=== PATIENT | female | born 1960 | race Caucasian/White ===

== ENCOUNTER 2024-07-27 11:19 | Emergency (ER) | payer OTHER ==
--- NOTE | 2024-07-27 11:30 | ECG ---
[facility] Test Date: 2024-07-27 Test Time: 11:21:20 Pat Name: EVA POPE Department: er Room: Gender: F Inspector And Clerk: yamil : 1960 Requested By: VERENA LORA Order Number: [id number] Reading MD: Kameron Tamayo Measurements Intervals [place] Rate: 88 P: 74 [place]: 145 QRS: 81 QRSD: 128 T: 69 QT: 367 QTc: 444 Interpretive Statements Sinus rhythm Probable left atrial enlargement Right bundle branch block Electronically Signed On 07-27-2024 14:53:24 PST by Kameron Tamayo Please click the below link to view image of tracing.
--- NOTE | 2024-07-27 11:42 | ED.PDOC ---
HPI Comments 64 y.o female with PMHx of asthma and HTN, coming from [facility], presents to the ED via EMS for a chief complaint of right sided chest pain associated with generalized weakness and dizziness that presented this morning. Patient describes pain as sharp, constant, non radiating and rating a 5/10 on the pain scale. Patient reports similar pain in the past however it subsided on its own and she never followed up with PCP nor went to the ED. [place] gave patient 324mg of ASA and was then given Tylenol IV en route by EMS. No other symptoms or pain reported. Chief Complaint: Chest Pain Time Seen by MD: 11:28 Reviewed Notes: Nurses Notes, Airflight Attendants Supervisor Notes, Medications, Allergies Information Source: Patient, Emergency Med Personnel Mode of Arrival: EMS Severity: Moderate Timing: Hours Duration: Since onset Prehospital treatment: 12 Lead EKG, Accucheck (96), Reinforcing Steel Erector, Pain Meds (tylenol IV ) Location: Chest (R) Radiation: No Radiation Quality: Sharp Onset: At Rest Cardiac Risk Factors: HTN PE Risk Factors: None History of: Similar pain in past Modifying Factors: Nothing Associated Signs and Symptoms: Other Past Medical History PAST MEDICAL HISTORY: Asthma, HTN Surgical History: Hysterectomy Surgical History (Other): cataracts BUSINESS DEVELOPMENT ASSOCIATE History: No Pertinent BUSINESS DEVELOPMENT ASSOCIATE History Family History Family History: Unknown Social History Smoker: Non-Smoker Alcohol: Occasionally Drugs: Denies Drug Use Lives In: Home Constitutional: reports: weakness; denies: chills, diaphoresis, fatigue, fever, malaise, sweats, others EENTM: denies: blurred vision, double vision, ear bleeding, ear discharge, ear drainage, ear pain, ear ringing, eye pain, eye redness, hearing loss, mouth pain, mouth swelling, nasal discharge, nose bleeding, nose congestion, nose pain, photophobia, tearing, throat pain, throat swelling, voice changes, others Respiratory: denies: cough, hemoptysis, orthopnea, SOB at rest, shortness of breath, SOB with excertion, stridor, wheezing, others Cardiovascular: reports: chest pain; denies: dizzy spells, diaphoresis, Dyspnea on exertion, edema, irregular heart beat, left arm pain, lightheadedness, palpitations, PND, syncope, others Gastrointestinal: denies: abdomen distended, abdominal pain, blood streaked bowels, constipated, diarrhea, dysphagia, difficulty swallowing, hematemesis, melena, nausea, poor appetite, poor fluid intake, rectal bleeding, rectal pain, vomiting, others Genitourinary: denies: abnormal vagina bleeding, burning, dyspareunia, dysuria, flank pain, frequency, hematuria, incontinence, pain, , vagina discharge, urgency, others Neurological: reports: dizziness; denies: fainting, headache, left sided numbness, left sided weakness, numbness, paresthesia, pre-existing deficit, right sided numbness, right sided weakness, seizure, speech problems, tingling, tremors, weakness, others Musculoskeletal: denies: back pain, gout, joint pain, joint swelling, muscle pain, muscle stiffness, neck pain, others Integumetry: denies: bruises, change in color, change in hair/nails, dryness, laceration, lesions, lumps, rash, wounds, others Allergic/Immunocompromised: denies: Difficulty Healing, Frequent Infections, Hives, Itching, others Hematologic/Lymphatic: denies: anemia, blood clots, easy bleeding, easy bruising, swollen glands, others Endocrine: denies: excessive hunger, excessive sweating, excessive thirst, excessive urination, flushing, intolerance to cold, intolerance to heat, unexplained weight gain, unexplained weight loss, others Psychiatric: denies: anxiety, bipolar disorder, depression, hopeless, panic disorder, schizophrenia, sleepless, suicidal, others All Other Systems: Reviewed and Negative Physical Exam General Appearance: No Apparent Distress HEENT: Normal ENT Inspection, Pharynx Normal, TMs Normal Neck: Full Range of Motion, Non-Tender, Normal, Normal Inspection Respiratory: Chest Non-Tender, Lungs Clear, No Accessory Muscle Use, No Respiratory Distress, Normal Breath Sounds Cardiovascular: No Edema, No JVD, No Murmur, No Gallop, Normal Peripheral Pulses, Regular Rate/Rhythm Breast Exam: Deferred Gastrointestinal: No Organomegaly, Non Tender, No Pulsatile Mass, Normal Bowel Sounds, Soft Genitalia: Deferred Pelvic: Deferred Rectal: Deferred Extremities: No calf tenderness, Normal capillary refill, Normal inspection, Normal range of motion, Non-tender, No pedal edema Musculoskeletal : Apperance: Normal Neurologic: Alert, computer aided design drafter II-XII nml as Tested, No Motor Deficits, Normal Affect, Normal Mood, No Sensory Deficits Cerebellar Function: Normal Reflexes: Normal Skin: Dry, Normal Color, Warm Lymphatic: No Adenopathy EKG EKG : Pulse Rate (adult): 88 Cardiac Rhythm: NSR Block: RBBB Hypertrophy: LAE Was a procedure done? Was a procedure done?: No CP Differential Dx Differential Diagnosis: N/A Differential Diagnosis: Angina, Esophageal reflux/spasm, Gastritis, Myocardial Infarction, Pericarditis X-Ray, Labs, Meds, VS Vital Signs Date Time Temp Pulse Resp B/P (MAP) Pulse Ox O2 Delivery O2 Flow Rate FiO2 07/27/24 12:23 72 07/27/24 11:42 88 07/27/24 11:21 88 Lab Test 07/27/24 13:10 07/27/24 12:00 Range/Units Troponin I High Sensitivity < 3 L < 3 L </=34 ng/L White Blood Count 8.5 4.4-10.8 10^3/uL Red Blood Count 4.27 4.0-5.20 10^6/uL Hemoglobin 13.5 12.2-16.2 g/dL Hematocrit 39.7 36.0-46.0 % Mean Corpuscular Volume 93.0 80.0-100.0 fL Mean Corpuscular Hemoglobin 31.7 28.0-32.0 pg Mean Corpuscular Hemoglobin Concent 34.0 32.0-36.0 g/dL Red Cell Distribution Width 13.6 11.8-14.3 % Platelet Count 521 H 140-450 10^3/uL Mean Platelet Volume 6.5 L 6.9-10.8 fL Neutrophils (%) (Auto) 68.1 37.0-80.0 % Lymphocytes (%) (Auto) 24.0 10.0-50.0 % Monocytes (%) (Auto) 5.4 0.0-12.0 % Eosinophils (%) (Auto) 1.3 0.0-7.0 % Basophils (%) (Auto) 1.2 0.0-2.0 % Neutrophils # (Auto) 5.8 1.6-8.6 10 ^3/uL Lymphocytes # (Auto) 2.1 0.4-5.4 10 ^3/uL Monocytes # (Auto) 0.5 0-1.3 10 ^3/uL Eosinophils # (Auto) 0.1 0-0.8 10 ^3/uL Basophils # (Auto) 0.1 0-0.2 10 ^3/uL Nucleated Red Blood Cells 0.1 % Prothrombin Time 10.5 9.3-11.8 sec Prothrombin Time INR 0.99 0.9-1.15 Activated Partial Thromboplast Time 28.5 24.5-34.5 SEC D-Dimer, Quantitative 0.46 0.0-0.49 mg/L FEU Sodium Level 135 L 136-145 mmol/L Potassium Level 4.9 3.5-5.1 mmol/L Chloride Level 102 98-107 mmol/L Carbon Dioxide Level 25 20-31 mmol/L Anion Gap 8 5-15 Blood Urea Nitrogen 8 L 9-23 mg/dL Creatinine 0.98 0.550-1.02 mg/dL Glomerular Filtration Rate Calc 65 >90 mL/min BUN/Creatinine Ratio 8.2 L 10.0-20.0 Serum Glucose 86 74-106 mg/dL Calcium Level 9.4 8.7-10.4 mg/dL Magnesium Level 2.3 1.6-2.6 mg/dL Total Bilirubin 0.5 0.2-1.0 mg/dL Aspartate Amino Transferase (AST) 25 13-40 U/L Alanine Aminotransferase (ALT) < 9 7-40 U/L Alkaline Phosphatase 100 46-116 U/L B-Type Natriuretic Peptide 25.17 0-100 pg/mL Total Protein 7.4 5.7-8.2 g/dL Albumin 4.8 3.2-4.8 g/dL Patient's CBC and chemistry panel is within normal limits The patient's troponin level x2 is negative The chest x-ray is negative The patient will return to the emergency department's conditions The patient was asymptomatic at this time. Images Reviewed?: Images reviewed and evaluated by me Time of 1ST Reevaluation: 11:38 Reevaluation 1ST: Unchanged Patient Education/Counseling: Diagnosis, Treatment, Prognosis, Need For Follow Up Family Education/Counseling: No Family Present Departure 1 Departure Time of Disposition: 15:07 Impression: Primary Impression: Non-cardiac chest pain Disposition: 01 HOME / SELF CARE / HOMELESS Condition: Fair Discharged With: Self Critical Care Note Critical Care Time?: No Stability Stability form required: No Heart Score Heart Score: Heart Score Response (Comments) Value History Slightly Suspicious 0 EKG Normal 0 Age >65 2 Risk Factors 1 or 2 risk factors 1 Troponin Normal limit 0 Total 3 I personally scribed for VERENA LORA MD ([email or web address]) on 07/27/24 at 11:42. Electronically submitted by Carol Vann ([facility]). VERENA LORA MD Jul 27, 2024 11:42
[2024-07-27 12:14] LABS: Eosinophils # (auto) 0.1 10 ^3/uL (0-0.8); Lymphocytes # (auto) 2.1 10 ^3/uL (0.4-5.4); Monocytes # (auto) 0.5 10 ^3/uL (0-1.3); Neutrophils # (auto) 5.8 10 ^3/uL (1.6-8.6); Nucleated Red Blood Cells % 0.1 %; Red Blood Cells 4.27 10^6/uL (4.0-5.20)
[2024-07-27 12:15] LABS: Basophils # (auto) 0.1 10 ^3/uL (0-0.2); Basophils % (auto) 1.2 % (0.0-2.0); Eosinophils % (auto) 1.3 % (0.0-7.0); Hematocrit 39.7 % (36.0-46.0); Hemoglobin 13.5 g/dL (12.2-16.2); Mean Corpuscular Hemoglobin 31.7 pg (28.0-32.0); Monocytes % (auto) 5.4 % (0.0-12.0); Neutrophils % (auto) 68.1 % (37.0-80.0); Platelet Count (auto) 521 10^3/uL (140-450); Red Cell Distribution Width 13.6 % (11.8-14.3); White Blood Cell 8.5 10^3/uL (4.4-10.8)
--- NOTE | 2024-07-27 12:24 | ECG ---
[facility] Test Date: 2024-07-27 Test Time: 12:23:21 Pat Name: EVA POPE Department: ER Room: Gender: F Kitchenwhere Maker: ARLETTE : 1960 Requested By: VERENA LORA Order Number: [id number] Reading MD: Kameron Tamayo Measurements Intervals [place] Rate: 72 P: 80 [place]: 142 QRS: 77 QRSD: 128 T: 78 QT: 400 QTc: 438 Interpretive Statements Sinus rhythm Probable left atrial enlargement Right bundle branch block Electronically Signed On 07-27-2024 14:53:27 PST by Kameron Tamayo Please click the below link to view image of tracing.
[2024-07-27 12:28] LABS: INR 0.99 (0.9-1.15); Partial Thromboplastin Time 28.5 SEC (24.5-34.5); Prothrombin Time 10.5 sec (9.3-11.8)
[2024-07-27 12:29] LABS: Albumin 4.8 g/dL (3.2-4.8); Alkaline Phosphatase 100 U/L (46-116); Anion Gap 8 (5-15); Aspartate Aminotransferase 25 U/L (13-40); BUN/Creatinine Ratio 8.2 (10.0-20.0); Bilirubin, Total 0.5 mg/dL (0.2-1.0); Calcium 9.4 mg/dL (8.7-10.4); Carbon Dioxide 25 mmol/L (20-31); Chloride 102 mmol/L (98-107); Glucose 86 mg/dL (74-106); Magnesium 2.3 mg/dL (1.6-2.6); Potassium 4.9 mmol/L (3.5-5.1); Total Protein 7.4 g/dL (5.7-8.2)
[2024-07-27 12:35] LABS: Alanine Aminotransferase < 9 U/L (7-40); Blood Urea Nitrogen 8 mg/dL (9-23); Sodium 135 mmol/L (136-145)
--- NOTE | 2024-07-27 13:43 | DVH ---
CHEST RADIOGRAPH Indication: CP Technique: Single frontal view of the chest was obtained Comparison: None FINDINGS: Lines and Tubes: None Lungs: No focal consolidation. Pleura: No effusion. No pneumothorax. Cardiomediastinal contours: Unremarkable Bones: No acute osseous abnormality. IMPRESSION: 1. No acute cardiopulmonary disease.
[2024-07-27 16:19] VITALS: BP 148/83; PULSE 95; RESP 20; TEMP 97.8; O2SAT 98
== END 2024-07-27 16:24 | disposition home or self-care (01) ==
LOC: EDBD 11:19 → ER 11:19
DX: R07.89 Other chest pain (principal); R53.1 Weakness; R42 Dizziness and giddiness; I10 Essential (primary) hypertension; J45.909 Unspecified asthma, uncomplicated; R06.02 Shortness of breath; Z90.710 Acquired absence of both cervix and uterus
CPT/HCPCS: 36415; 71045; 80053; 83735; 83880; 84484; 85025; 85379; 85610; 85730; 93005